=== PATIENT | male | born 1995 | race Caucasian/White ===

== ENCOUNTER 2018-03-26 03:58 | Emergency (ER) | payer SELFPAY ==
--- NOTE | 2018-03-26 04:19 | ED ---
Substance Abuse/Use - HPI Summary HPI Summary: This patient is a 22 year old M brought in by ambulance to [facility] with a chief complaint of EtOH intoxication. Patient was found passed out at a friends house and friend was unsure how much EtOH the patient had to drink. Patient has an abrasion above his left eyebrow. LEVEL FIVE CAVEAT DUE TO UNRESPONSIVENESS. - History Of Current Complaint Stated Complaint: ETOH Hx Obtained From: EMS Ingestion History: Type/Name Of Drug - EtOH Overdose Characteristics: Oral Timing Of Abuse: Binge Use Severity Currently: Moderate Character: Lethargic - Allergies/Home Medications Allergies/Adverse Reactions: Allergies Allergy/AdvReac Type Severity Reaction Status Date / Time Unable to Assess Allergy Verified 03/26/18 04:12 PMH/Surg Hx/FS Hx/Imm Hx Infectious Disease History: Unable to Obtain/Confirm Infectious Disease History: Denies: Traveled Outside the [place] in Last 30 Days - unknown - Family History Known Family History: Positive: Unknown - unable to obtain due to AMS Review of Systems Skin: Other - abrasion above left eyebrow Neurological: Other - EtOH intoxication, responsive only to painful stimuli All Other Systems Reviewed And Are Negative: No - Comments Additional Review of Systems Comments: LEVEL 5 CAVEAT DUE TO AMS Physical Exam - Summary Physical Exam Summary: VITAL SIGNS: Reviewed. GENERAL: Patient is a well-developed and nourished MALE who is lying comfortable in the stretcher. Patient is not in any acute respiratory distress. HEAD AND FACE: No signs of trauma. No ecchymosis, hematomas or skull depressions. No sinus tenderness. EYES: PERRLA, EOMI x 2, No injected conjunctiva, no nystagmus. EARS: Hearing grossly intact. Ear canals and tympanic membranes are within normal limits. MOUTH: Oropharynx within normal limits. NECK: Supple, trachea is midline, no adenopathy, no JVD, no carotid bruit, no c- spine tenderness, neck with full ROM. CHEST: Symmetric, no tenderness at palpation LUNGS: Clear to auscultation bilaterally. No wheezing or crackles. CVS: Regular rate and rhythm, S1 and S2 present, no murmurs or gallops appreciated. ABDOMEN: Soft, non-tender. No signs of distention. No rebound no guarding, and no masses palpated. Bowel sounds are normal. EXTREMITIES: FROM in all major joints, no edema, no cyanosis or clubbing. NEURO: Responsive to deep painful stimuli by grimacing. No acute neurological deficits. SKIN: Dry and warm, Superficial abrasion over left eyebrow Triage Information Reviewed: Yes Vital Signs On Initial Exam: Initial Vitals Temp Pulse Resp BP Pulse Ox 97 F 71 17 104/62 97 03/26/18 04:08 03/26/18 04:08 03/26/18 04:08 03/26/18 04:08 03/26/18 04:08 Vital Signs Reviewed: Yes Diagnostics - Vital Signs Vital Signs Temp Pulse Resp BP Pulse Ox 03/26/18 04:08 97 F 71 17 104/62 97 - Laboratory Lab Statement: Any lab studies that have been ordered have been reviewed, and results considered in the medical decision making process. Course/Dx - Course Course Of Treatment: This patient is a 22 year old M brought in by ambulance to [facility] with a chief complaint of unresponsiveness. Patient was found passed out at a friends house and friend was unsure how much EtOH the patient had to drink. Patient has an abrasion above his left eyebrow. LEVEL FIVE CAVEAT DUE TO UNRESPONSIVENESS. Patient will be signed out to from Dr. Fletcher to Dr. Bal upon provider shift change pending disposition. - Diagnoses Provider Diagnoses: Alcohol intoxication Discharge - Sign-Out/Discharge Documenting (check all that apply): Sign-Out Patient - upon provider shift change Signing out patient TO: Mary Bal - Discharge Plan Condition: Stable - Attestation Statements Document Initiated by Scribe: Yes Documenting Scribe: Antonella Whittington Provider For Whom Scribe is Documenting (Include Credential): Charissa Fletcher MD Scribe Attestation: Antonella Borrero, scribed for Charissa Fletcher MD on 03/26/18 at 0628. Status of Scribe Document: Ready
--- NOTE | 2018-03-26 08:32 | ED ---
Progress - Progress Note Progress Note: Receiving sign-out from Dr. Fletcher at 0700 awaiting sobriety. Pt is A&OX3. Patient has a tiny abrasion seen over the left eyebrow. CT scan was offered but pt refused. Pt is neurologically intact. He admits to drinking vodka and beer. Patient was able to ambulate without difficulty.I discussed results with patient and he reports feeling better. He is hemodynamically stable and safe for discharge. Strict return precautions given and he will otherwise follow up with his PCP. Re-Evaluation - Re-Evaluation First Eval Re-Evaluation Time: 08:31 Change: Improved Comment: Patient has a tiny abrasion seen over the left eyebrow. CT scan was offered to make sure everything was ok but pt refused. Pt is neurologically intact. He admits to drinking vodka and beer. Course/Dx - Course Course Of Treatment: Receiving sign-out from Dr. Fletcher at 0700 awaiting sobriety. Pt is A&O X3. Patient has a tiny abrasion seen over the left eyebrow. CT scan was offered pt refused. Pt is neurologically intact. He admits to drinking vodka and beer. Patient was able to ambulate without difficulty. I discussed results with patient and he reports feeling better. He is hemodynamically stable and safe for discharge. Strict return precautions given and he will otherwise follow up with his PCP. - Diagnoses Provider Diagnoses: Alcohol intoxication Discharge - Sign-Out/Discharge Documenting (check all that apply): Patient Departure - Discharge Receiving patient FROM: Charissa Fletcher - At 0700 - Discharge Plan Condition: Stable Disposition: HOME Patient Education Materials: Alcohol Intoxication (ED) [facility] [Primary Care Provider] - Additional Instructions: Return to ED with any new or worsening symptoms. - Billing Disposition and Condition Condition: STABLE Disposition: Home - Attestation Statements Document Initiated by Scribe: Yes Documenting Scribe: Preston Kilgore Provider For Whom Bill is Documenting (Include Credential): Mary Bal MD Scribe Attestation: Preston Borrero scribed for Mary Bal MD on 03/26/18 at 1722. Scribe Documentation Reviewed: Yes Provider Attestation: The documentation as recorded by the Preston chavez accurately reflects the service I personally performed and the decisions made by me, Cherelle Bal MD Status of Scribe Document: Viewed
[2018-03-26 08:54] VITALS: BP 122/74
== END 2018-03-26 08:54 | disposition home or self-care (01) ==
LOC: EDBD → ED 03:58
DX: F10.129 Alcohol abuse with intoxication, unspecified (principal)
CPT/HCPCS: 99284